=== PATIENT | male | born 1980 | race African-American/Black ===

== ENCOUNTER 2024-11-21 10:13 | Emergency (ER) | payer SELFPAY ==
[2024-11-21] MEDS ORDERED: Lidocaine 1% (PF) 30 ML VIAL ONE (12:39)
[2024-11-21] MEDS ORDERED: HYDROcodone/Acetaminophen 5/325 mg Tablet ONE (12:39)
[2024-11-21] MEDS ORDERED: Ketorolac Tromethamine 30 MG (1 mL) VIAL ONE (12:44)
== END 2024-11-21 13:34 | disposition home or self-care (01) ==
LOC: ERS 10:13
DX: L03.221 Cellulitis of neck (principal); F17.210 Nicotine dependence, cigarettes, uncomplicated
CPT/HCPCS: 10060; 96372; J1885

== ENCOUNTER 2024-11-25 10:49 | Inpatient (IN) | payer SELFPAY ==
[2024-11-25 11:54] LABS: ALT (SGPT) 36 U/L (8-55); AST (SGOT) 36 U/L (5-34); Albumin 2.7 g/dL (3.5-5.0); Alkaline Phosphatase 89 U/L (40-110); Anion Gap 17 mmol/L (10-20); BUN (Urea Nitrogen) 33 mg/dL (8.9-20.6); Calc. Creatinine Clearance 0 mL/min (70-130); Calcium 9.3 mg/dL (7.8-10.44); Carbon Dioxide 23 mmol/L (22-29); Chloride 95 mmol/L (98-107); Estimated GFR 78; Globulin 4.9 g/dL (2.4-3.5); Glucose 117 mg/dL (70-105); Potassium 4.3 mmol/L (3.5-5.1); Protein, Total 7.6 g/dL (6.0-8.3); Sodium 131 mmol/L (136-145)
[2024-11-25 12:30] LABS: Hemoglobin 15.1 g/dL (14.0-18.0); Mean Corpuscular HGB CONC 34.3 g/dL (32.0-36.0); Mean Corpuscular Hemoglobin 31.2 pg (27.0-31.0); Mean Corpuscular Volume 90.9 fL (78.0-98.0); Platelet Count 265 10x3/uL (130-400); RBC Distribution Width 12.6 % (11.5-14.5); Red Blood Cell (RBC) Count 4.84 mill/uL (4.70-6.10)
[2024-11-25 13:07] LABS: Band 15 % (5-11); Burr Cells SLIGHT = 2-5 cells HPF (0-1); Lymphocytes 2 % (21-51); Monocytes 7 % (0-10); Neutrophil 77 % (42-75); Platelet Adequacy Comment Platelets Normal
[2024-11-25] MEDS ORDERED: Iopamidol-370 76% 500 ML MDV (1 ML CHARGE) ONE ×2 (13:13→13:43)
[2024-11-25] MEDS ORDERED: Vancomycin 1 GM/200 ML (FROZEN) BAG ONE (13:22)
[2024-11-25] MEDS ORDERED: Sodium Chloride 0.9% 100 ML ONE (13:22)
[2024-11-25] MEDS ORDERED: Cefepime 2 GM VIAL ONE (13:22)
[2024-11-25] MEDS ORDERED: GASTROGRAFIN 30 ML BOT ONE (13:43)
[2024-11-25] MEDS ORDERED: Morphine 2 MG/ML VIAL ONE (21:30)
[2024-11-25] MEDS ORDERED: Ondansetron ODT 4 MG TAB PO PRN (21:34)
[2024-11-25] MEDS ORDERED: Ondansetron PF 4 MG/2 ML Vial IVP PRN (21:34)
[2024-11-25] MEDS: Morphine 2 MG/ML VIAL SLOW IVP PRN (21:35)
[2024-11-25 22:48] VITALS: BMI 24.7
[2024-11-25] MEDS: Sodium Chloride 0.9% 1,000 ML IV SCH (23:00)
[2024-11-26] MEDS: Vancomycin (BATCH) 1.75 GM in Premix 1 BAG IVPB SCH (00:03)
[2024-11-26] MEDS: Cefepime 1 GM in Sodium Chloride 0.9% 100 ML IVPB SCH (02:08)
[2024-11-26 05:40] LABS: Vancomycin, Random 15.9 ug/mL (See Comment)
[2024-11-26 05:47] LABS: Bacteria/HPF None Seen HPF (None Seen); Bilirubin Negative (Negative); Blood, Urine 1+ (Negative); CAUTI Indications for Culture Acute Hematuria; Clarity Clear (Clear); Glucose, Urine (Dipstick) Normal (Negative); Ketone, Urine Negative (Negative); Leukocyte Negative Leu/uL (Negative); Nitrite Negative (Negative); Protein, Urine (Dipstick) 50 mg/dL (Neg-Trace); Specific Gravity, Urine 1.043 (1.002-1.036); Squamous Epithelial 0-3 HPF (0-3); Urobilinogen Normal mg/dL (Less than 2); WBC/HPF 0-3 HPF (0-3); pH, Urine 5.5 (5.0-9.0)
[2024-11-26 05:48] LABS: Urine Culture Reflex No No
[2024-11-26 05:50] LABS: Anion Gap 16 mmol/L (10-20); BUN (Urea Nitrogen) 28 mg/dL (8.9-20.6); Calc. Creatinine Clearance 96 mL/min (70-130); Calcium 7.8 mg/dL (7.8-10.44); Carbon Dioxide 22 mmol/L (22-29); Chloride 96 mmol/L (98-107); Estimated GFR 93; Glucose 101 mg/dL (70-105); Potassium 4.1 mmol/L (3.5-5.1); Sodium 130 mmol/L (136-145)
[2024-11-26 06:03] LABS: Mean Corpuscular HGB CONC 34.2 g/dL (32.0-36.0); Mean Corpuscular Volume 90.5 fL (78.0-98.0); Mean Platelet Volume 10.1 fL (7.4-10.4); Platelet Count 279 10x3/uL (130-400)
[2024-11-26 06:48] LABS: Band 23 % (5-11); Burr Cells MODERATE= 6-15 cells HPF (0-1); Monocytes 6 % (0-10); Neutrophil 68 % (42-75); Platelet Adequacy Comment Platelets Normal; Polychromasia SLIGHT = 2-3 cells HPF (0-2); Reactive Lymphocytes 3 % (0-10)
[2024-11-26] MEDS ORDERED: PHENYLEPHRINE-NS 100 MCG/ML 10 ML SYRINGE ONE (07:18)
[2024-11-26] MEDS ORDERED: Ondansetron PF 4 MG/2 ML Vial ONE (07:18)
[2024-11-26] MEDS ORDERED: Dexamethasone 20 MG/5 ML VIAL ONE (07:18)
[2024-11-26] MEDS ORDERED: Rocuronium Bromide 10 MG/ML (10ML VIAL) ONE (07:18)
[2024-11-26] MEDS ORDERED: Glycopyrrolate 0.2 MG/ML 5 ML SYRINGE ONE (07:18)
[2024-11-26] MEDS ORDERED: Lidocaine 1% PF 5 ML VIAL ONE (07:18)
[2024-11-26] MEDS ORDERED: PROPOFOL 20 ML ONE (07:19)
[2024-11-26] MEDS ORDERED: Midazolam HCl 2 mg/2 ml Vial ONE (07:19)
[2024-11-26] MEDS ORDERED: fentaNYL PF 100 MCG/2 ML SYRINGE ONE (07:19)
[2024-11-26] MEDS ORDERED: Lidocaine 2% 6 ML (Jelly) SYR ONE (07:28)
[2024-11-26] MEDS ORDERED: ePHEDrine Sulfate 50 MG/10 ML VIAL ONE (08:14)
[2024-11-26 08:15] LABS: Poikilocytosis SLIGHT = 6-15 cells HPF (0-5)
[2024-11-26] MEDS ORDERED: SUGAMMADEX SODIUM 200 MG/2 ML VIAL ONE (08:26)
[2024-11-26] MEDS: Vancomycin 1 GM in Premix 1 BAG IVPB SCH ×2 (10:57→16:15)
[2024-11-26] MEDS: Sodium Chloride 0.9% 1,000 ML IV SCH (11:14)
[2024-11-26 12:53] VITALS: BMI 24.7
[2024-11-26 13:19] LABS: Amphetamine Not Detected (NotDetected); Barbiturates Screen Not Detected (NotDetected); Benzodiazepine Screen Not Detected (NotDetected); Cocaine Metabolite Screen Detected (NotDetected); Methadone Not Detected (NotDetected); Methamphetamine Detected (NotDetected); Opiate Screen Detected (NotDetected); Oxycodone Screen Not Detected (NotDetected); Phencyclidine (PCP) Not Detected (NotDetected); THC/Cannabinoid Screen Detected (NotDetected); Tricyclic Screen Not Detected (NotDetected)
[2024-11-26 17:17] LABS: HIV (1/2) Antibody/Antigen NONREACTIVE (NonReactive); HIV 1/2 INDEX 0.05 S/CO (<1.00)
[2024-11-26] MEDS ORDERED: Cefepime 2 GM in Sodium Chloride 0.9% 100 ML IVPB SCH (21:00)
[2024-11-27] MEDS: Acetaminophen 325 MG TAB PO PRN (00:09)
[2024-11-27 09:39] LABS: Hematocrit 36.1 % (42.0-52.0); Hemoglobin 12.2 g/dL (14.0-18.0); Mean Corpuscular HGB CONC 33.8 g/dL (32.0-36.0); Mean Corpuscular Hemoglobin 31.8 pg (27.0-31.0); Mean Platelet Volume 10.3 fL (7.4-10.4); Platelet Count 340 10x3/uL (130-400); RBC Distribution Width 13.1 % (11.5-14.5); Red Blood Cell (RBC) Count 3.84 mill/uL (4.70-6.10)
[2024-11-27 10:04] LABS: Anisocytosis MARKED = >30 cells HPF (0-5); Band 5 % (5-11); Burr Cells MODERATE= 6-15 cells HPF (0-1); Lymphocytes 2 % (21-51); Macrocytosis MODERATE=16-30 cells HPF (0-5); Monocytes 5 % (0-10); Neutrophil 88 % (42-75); Ovalocytes SLIGHT = 2-5 cells HPF (0-1); Platelet Adequacy Comment Platelets Normal; Poikilocytosis MARKED = >30 cells HPF (0-5); Polychromasia SLIGHT = 2-3 cells HPF (0-2)
[2024-11-27 10:13] LABS: Vancomycin, Random 29.8 ug/mL (See Comment)
[2024-11-27 10:14] LABS: Anion Gap 10 mmol/L (10-20); BUN (Urea Nitrogen) 23 mg/dL (8.9-20.6); Calc. Creatinine Clearance 117 mL/min (70-130); Carbon Dioxide 23 mmol/L (22-29); Chloride 103 mmol/L (98-107); Estimated GFR 110; Glucose 114 mg/dL (70-105); Potassium 4.3 mmol/L (3.5-5.1); Sodium 132 mmol/L (136-145)
[2024-11-27] MEDS: Sodium Chloride 0.9% 1,000 ML IV SCH (17:53)
[2024-11-28 08:35] LABS: #Basophils 0.04 10x3/uL (0.0-0.2); %Basophils 0.2 % (0.0-1.0); %Lymphocytes 6.5 % (21.0-51.0); %Monocytes 9.1 % (0.0-10.0); %Neutrophils 80.8 % (42.0-75.0); Hematocrit 36.1 % (42.0-52.0); Hemoglobin 12.2 g/dL (14.0-18.0); Mean Corpuscular HGB CONC 33.8 g/dL (32.0-36.0); Mean Corpuscular Hemoglobin 31.6 pg (27.0-31.0); Mean Corpuscular Volume 93.5 fL (78.0-98.0); Mean Platelet Volume 10.4 fL (7.4-10.4); Platelet Count 435 10x3/uL (130-400); RBC Distribution Width 13.2 % (11.5-14.5); Red Blood Cell (RBC) Count 3.86 mill/uL (4.70-6.10)
[2024-11-28 08:51] LABS: Anion Gap 13 mmol/L (10-20); BUN (Urea Nitrogen) 19 mg/dL (8.9-20.6); Calc. Creatinine Clearance 121 mL/min (70-130); Calcium 7.7 mg/dL (7.8-10.44); Carbon Dioxide 25 mmol/L (22-29); Chloride 99 mmol/L (98-107); Estimated GFR 112; Glucose 87 mg/dL (70-105); Potassium 4.8 mmol/L (3.5-5.1); Sodium 132 mmol/L (136-145); Vancomycin, Random 14.1 ug/mL (See Comment)
[2024-11-28] MEDS: Sodium Chloride 0.9% 1,000 ML IV SCH (16:50)
[2024-11-28] MEDS: Vancomycin 1 GM in Premix 1 BAG IVPB SCH (20:52)
[2024-11-29] MEDS: Amlodipine 10 MG TAB PO SCH (10:29)
[2024-11-29 10:31] LABS: Hematocrit 38.7 % (42.0-52.0); Mean Corpuscular HGB CONC 33.6 g/dL (32.0-36.0); Mean Corpuscular Volume 92.4 fL (78.0-98.0); Mean Platelet Volume 10.4 fL (7.4-10.4); Platelet Count 502 10x3/uL (130-400); RBC Distribution Width 13.5 % (11.5-14.5); Red Blood Cell (RBC) Count 4.19 mill/uL (4.70-6.10)
[2024-11-29] MEDS: HYDROcodone/Acetaminophen 5/325 mg Tablet PO PRN (10:31)
[2024-11-29 10:50] LABS: Anion Gap 13 mmol/L (10-20); BUN (Urea Nitrogen) 13 mg/dL (8.9-20.6); Calc. Creatinine Clearance 126 mL/min (70-130); Carbon Dioxide 21 mmol/L (22-29); Chloride 101 mmol/L (98-107); Potassium 4.2 mmol/L (3.5-5.1); Sodium 131 mmol/L (136-145)
[2024-11-29 10:51] LABS: Calcium 7.9 mg/dL (7.8-10.44); Estimated GFR 113; Glucose 107 mg/dL (70-105)
[2024-11-29 11:40] LABS: Band 7 % (5-11); Burr Cells MODERATE= 6-15 cells HPF (0-1); Eosinophils 1 % (0-10); Large Platelets 3.9 % (0-5); Lymphocytes 6 % (21-51); Metamyelocyte 1 % (0-0); Monocytes 6 % (0-10); Neutrophil 77 % (42-75); Platelet Adequacy Comment Platelets Increased; Polychromasia SLIGHT = 2-3 cells HPF (0-2); Reactive Lymphocytes 2 % (0-10)
[2024-11-30 08:40] LABS: Hematocrit 34.9 % (42.0-52.0); Hemoglobin 11.4 g/dL (14.0-18.0); Mean Corpuscular HGB CONC 32.7 g/dL (32.0-36.0); Mean Corpuscular Volume 94.8 fL (78.0-98.0); Mean Platelet Volume 9.5 fL (7.4-10.4); Platelet Count 581 10x3/uL (130-400); RBC Distribution Width 13.8 % (11.5-14.5); Red Blood Cell (RBC) Count 3.68 mill/uL (4.70-6.10)
[2024-11-30 08:53] LABS: Anion Gap 13 mmol/L (10-20); BUN (Urea Nitrogen) 12 mg/dL (8.9-20.6); Calc. Creatinine Clearance 117 mL/min (70-130); Calcium 7.9 mg/dL (7.8-10.44); Carbon Dioxide 23 mmol/L (22-29); Chloride 100 mmol/L (98-107); Estimated GFR 110; Glucose 109 mg/dL (70-105); Potassium 3.8 mmol/L (3.5-5.1); Sodium 132 mmol/L (136-145)
[2024-11-30 08:54] LABS: CRP,High Sensitivity (Inhouse) 15.64 mg/dL (< or = 0.5)
[2024-11-30 09:17] LABS: Anisocytosis SLIGHT = 6-15 cells HPF (0-5); Band 2 % (5-11); Lymphocytes 3 % (21-51); Monocytes 4 % (0-10); Neutrophil 91 % (42-75); Platelet Adequacy Comment Platelets Increased; Poikilocytosis SLIGHT = 6-15 cells HPF (0-5); Polychromasia SLIGHT = 2-3 cells HPF (0-2)
[2024-11-30] MEDS: Amlodipine 10 MG TAB PO SCH (10:58)
[2024-11-30] MEDS ORDERED: Morphine 4 MG/ML VIAL SLOW IVP PRN (11:32)
[2024-11-30 15:13] LABS: QuantiFERON-TB Gold Plus Indeterminate (Negative)
[2024-12-01 12:34] LABS: Hematocrit 32.7 % (42.0-52.0); Hemoglobin 11.1 g/dL (14.0-18.0); Mean Corpuscular HGB CONC 33.9 g/dL (32.0-36.0); Mean Corpuscular Hemoglobin 31.1 pg (27.0-31.0); Mean Corpuscular Volume 91.6 fL (78.0-98.0); Platelet Count 638 10x3/uL (130-400); RBC Distribution Width 13.8 % (11.5-14.5); Red Blood Cell (RBC) Count 3.57 mill/uL (4.70-6.10)
[2024-12-01 12:57] LABS: Anion Gap 11 mmol/L (10-20); BUN (Urea Nitrogen) 8 mg/dL (8.9-20.6); Calc. Creatinine Clearance 126 mL/min (70-130); Carbon Dioxide 23 mmol/L (22-29); Chloride 101 mmol/L (98-107); Estimated GFR 113; Glucose 93 mg/dL (70-105); Potassium 4.2 mmol/L (3.5-5.1); Sodium 131 mmol/L (136-145)
[2024-12-01 13:07] LABS: Anisocytosis MARKED = >30 cells HPF (0-5); Band 1 % (5-11); Eosinophils 1 % (0-10); Lymphocytes 3 % (21-51); Macrocytosis SLIGHT = 6-15 cells HPF (0-5); Monocytes 2 % (0-10); Neutrophil 91 % (42-75); Plasma Cells 1 % (0-0); Platelet Adequacy Comment Platelets Increased; Polychromasia SLIGHT = 2-3 cells HPF (0-2); Spherocytes SLIGHT = 1-5 cells HPF (None Seen)
[2024-12-02 05:47] LABS: #Basophils 0.05 10x3/uL (0.0-0.2); %Basophils 0.2 % (0.0-1.0); %Eosinophils 0.7 % (0.0-10.0); %Lymphocytes 5.9 % (21.0-51.0); %Monocytes 4.6 % (0.0-10.0); %Neutrophils 85.4 % (42.0-75.0); Hemoglobin 10.6 g/dL (14.0-18.0); Mean Corpuscular HGB CONC 34.2 g/dL (32.0-36.0); Mean Corpuscular Hemoglobin 31.1 pg (27.0-31.0); Mean Corpuscular Volume 90.9 fL (78.0-98.0); Mean Platelet Volume 9.3 fL (7.4-10.4); Platelet Count 606 10x3/uL (130-400); Red Blood Cell (RBC) Count 3.41 mill/uL (4.70-6.10)
[2024-12-02 06:00] LABS: Anion Gap 10 mmol/L (10-20); BUN (Urea Nitrogen) 10 mg/dL (8.9-20.6); Calc. Creatinine Clearance 118 mL/min (70-130); Calcium 7.7 mg/dL (7.8-10.44); Carbon Dioxide 24 mmol/L (22-29); Chloride 101 mmol/L (98-107); Estimated GFR 111; Glucose 96 mg/dL (70-105); Potassium 4.2 mmol/L (3.5-5.1); Sodium 131 mmol/L (136-145)
[2024-12-02 06:02] LABS: Vancomycin, Random 16.7 ug/mL (See Comment)
[2024-12-02] MEDS: SODIUM CHLORIDE IVPB SCH (09:22)
[2024-12-02] MEDS: GENTAMICIN IVPB SCH (09:22)
[2024-12-02] MEDS: ADMIXTURE FEE IVPB SCH (09:22)
[2024-12-03 04:56] LABS: #Basophils 0.07 10x3/uL (0.0-0.2); %Basophils 0.3 % (0.0-1.0); %Eosinophils 0.9 % (0.0-10.0); %Lymphocytes 7.8 % (21.0-51.0); %Monocytes 4.9 % (0.0-10.0); %Neutrophils 83.5 % (42.0-75.0); Hemoglobin 10.1 g/dL (14.0-18.0); Mean Corpuscular HGB CONC 33.7 g/dL (32.0-36.0); Mean Corpuscular Hemoglobin 31.1 pg (27.0-31.0); Mean Corpuscular Volume 92.3 fL (78.0-98.0); Mean Platelet Volume 9.2 fL (7.4-10.4); Platelet Count 601 10x3/uL (130-400); Red Blood Cell (RBC) Count 3.25 mill/uL (4.70-6.10)
[2024-12-03 05:16] LABS: Anion Gap 13 mmol/L (10-20); BUN (Urea Nitrogen) 9 mg/dL (8.9-20.6); Calc. Creatinine Clearance 128 mL/min (70-130); Calcium 7.6 mg/dL (7.8-10.44); Carbon Dioxide 22 mmol/L (22-29); Chloride 104 mmol/L (98-107); Estimated GFR 113; Glucose 95 mg/dL (70-105); Potassium 4.3 mmol/L (3.5-5.1); Sodium 135 mmol/L (136-145)
[2024-12-03] MEDS ORDERED: PHENYLEPHRINE-NS 100 MCG/ML 10 ML SYRINGE ONE (08:39)
[2024-12-03] MEDS ORDERED: PROPOFOL 40 ML ONE (08:40)
[2024-12-03] MEDS ORDERED: PROPOFOL 20 ML ONE ×2 (09:19→09:32)
[2024-12-03] MEDS ORDERED: ePHEDrine Sulfate 50 MG/10 ML VIAL ONE (09:47)
[2024-12-04 04:30] LABS: #Basophils 0.05 10x3/uL (0.0-0.2); %Basophils 0.3 % (0.0-1.0); %Eosinophils 0.9 % (0.0-10.0); %Lymphocytes 7.1 % (21.0-51.0); %Monocytes 4.3 % (0.0-10.0); %Neutrophils 85.1 % (42.0-75.0); Hematocrit 28.2 % (42.0-52.0); Hemoglobin 9.3 g/dL (14.0-18.0); Mean Corpuscular Hemoglobin 31.3 pg (27.0-31.0); Mean Corpuscular Volume 94.9 fL (78.0-98.0); Mean Platelet Volume 9.1 fL (7.4-10.4); Platelet Count 544 10x3/uL (130-400); RBC Distribution Width 14.2 % (11.5-14.5); Red Blood Cell (RBC) Count 2.97 mill/uL (4.70-6.10)
[2024-12-04 04:51] LABS: Anion Gap 11 mmol/L (10-20); BUN (Urea Nitrogen) 8 mg/dL (8.9-20.6); Calc. Creatinine Clearance 120 mL/min (70-130); Calcium 7.8 mg/dL (7.8-10.44); Carbon Dioxide 25 mmol/L (22-29); Chloride 101 mmol/L (98-107); Estimated GFR 111; Glucose 131 mg/dL (70-105); Sodium 133 mmol/L (136-145)
[2024-12-04] MEDS: Methocarbamol 500 MG TAB PO SCH ×2 (16:12→20:31)
[2024-12-05 05:18] LABS: #Basophils 0.04 10x3/uL (0.0-0.2); %Basophils 0.3 % (0.0-1.0); %Eosinophils 1.3 % (0.0-10.0); %Lymphocytes 9.9 % (21.0-51.0); %Monocytes 6.7 % (0.0-10.0); %Neutrophils 79.6 % (42.0-75.0); Hematocrit 27.2 % (42.0-52.0); Hemoglobin 8.9 g/dL (14.0-18.0); Mean Corpuscular HGB CONC 32.7 g/dL (32.0-36.0); Mean Corpuscular Hemoglobin 31.1 pg (27.0-31.0); Mean Corpuscular Volume 95.1 fL (78.0-98.0); Platelet Count 545 10x3/uL (130-400); RBC Distribution Width 14.2 % (11.5-14.5); Red Blood Cell (RBC) Count 2.86 mill/uL (4.70-6.10)
[2024-12-05 05:32] LABS: Anion Gap 11 mmol/L (10-20); BUN (Urea Nitrogen) 7 mg/dL (8.9-20.6); Calc. Creatinine Clearance 105 mL/min (70-130); Calcium 7.8 mg/dL (7.8-10.44); Carbon Dioxide 23 mmol/L (22-29); Chloride 101 mmol/L (98-107); Estimated GFR 103; Glucose 120 mg/dL (70-105); Potassium 4.1 mmol/L (3.5-5.1); Sodium 131 mmol/L (136-145)
[2024-12-05] MEDS ORDERED: Iopamidol 370 76% 100 ML VIAL ONE (14:09)
[2024-12-05] MEDS: VANCOMYCIN 1.25 GM/250 ML BAG 1.25 GM in Premix 1 BAG IVPB SCH (17:23)
[2024-12-06 05:22] LABS: #Basophils 0.05 10x3/uL (0.0-0.2); %Basophils 0.3 % (0.0-1.0); %Eosinophils 1.6 % (0.0-10.0); %Lymphocytes 6.7 % (21.0-51.0); %Monocytes 5.5 % (0.0-10.0); %Neutrophils 83.9 % (42.0-75.0); Hematocrit 26.7 % (42.0-52.0); Hemoglobin 8.6 g/dL (14.0-18.0); Mean Corpuscular HGB CONC 32.2 g/dL (32.0-36.0); Mean Corpuscular Hemoglobin 30.8 pg (27.0-31.0); Mean Corpuscular Volume 95.7 fL (78.0-98.0); Mean Platelet Volume 8.8 fL (7.4-10.4); Platelet Count 630 10x3/uL (130-400); RBC Distribution Width 14.3 % (11.5-14.5); Red Blood Cell (RBC) Count 2.79 mill/uL (4.70-6.10)
[2024-12-06 05:42] LABS: Anion Gap 13 mmol/L (10-20); BUN (Urea Nitrogen) 9 mg/dL (8.9-20.6); Calc. Creatinine Clearance 95 mL/min (70-130); Carbon Dioxide 21 mmol/L (22-29); Chloride 99 mmol/L (98-107); Estimated GFR 91; Glucose 133 mg/dL (70-105); Sodium 129 mmol/L (136-145)
[2024-12-07] MEDS ORDERED: Fentanyl 250 MCG/5 ML VIAL ONE (07:08)
[2024-12-07] MEDS ORDERED: Dexamethasone 4 mg/ml Vial ONE ×2 (07:08→07:19)
[2024-12-07] MEDS ORDERED: PROPOFOL 20 ML ONE (07:08)
[2024-12-07] MEDS ORDERED: SUGAMMADEX SODIUM 200 MG/2 ML VIAL ONE (07:08)
[2024-12-07] MEDS ORDERED: Ondansetron PF 4 MG/2 ML Vial ONE (07:08)
[2024-12-07] MEDS ORDERED: Midazolam HCl 2 mg/2 ml Vial ONE (07:08)
[2024-12-07] MEDS ORDERED: Lidocaine 1% PF 5 ML VIAL ONE (07:08)
[2024-12-07] MEDS ORDERED: Rocuronium Bromide 10 MG/ML (10ML VIAL) ONE (07:08)
[2024-12-07] MEDS ORDERED: EPINEPHrine 1 MG/ML VIAL ONE (07:20)
[2024-12-07] MEDS ORDERED: Bupivacaine PF 0.5% 30 ML VIAL ONE (07:20)
[2024-12-07] MEDS ORDERED: PHENYLEPHRINE-NS 100 MCG/ML 10 ML SYRINGE ONE (08:32)
[2024-12-07] MEDS ORDERED: HYDROmorphone 2 MG/ML VIAL SLOW IVP PRN (08:58)
[2024-12-07] MEDS ORDERED: Promethazine HCl 25 MG/ML VIAL IM PRN ×2 (08:58→09:47)
[2024-12-07] MEDS ORDERED: Ondansetron HCl/PF 4 MG/2 ML Vial IVP PRN (08:58)
[2024-12-07] MEDS ORDERED: fentaNYL 50 mcg/mL 1 mL Vial ONE ×2 (09:36→09:41)
[2024-12-07] MEDS ORDERED: HYDROmorphone 0.5 MG/0.5 ML SYRINGE ONE ×3 (09:44→10:58)
[2024-12-07] MEDS ORDERED: Ondansetron PF 4 MG/2 ML Vial IVP PRN (09:47)
[2024-12-07] MEDS ORDERED: diphenhydrAMINE 25 MG CAP PO PRN (09:47)
[2024-12-07] MEDS ORDERED: FENTANYL 500 MCG/10 ML VIAL 2,000 MCG in Sodium Chloride 0.9% 60 ML IV PRN (09:47)
[2024-12-07] MEDS ORDERED: diphenhydrAMINE 50 MG/ML VIAL IM PRN (09:47)
[2024-12-07] MEDS ORDERED: diphenhydrAMINE 50 MG/ML VIAL IVP PRN (09:47)
[2024-12-07] MEDS ORDERED: Naloxone HCl 0.4 mg/ml Vial IV PRN (09:47)
[2024-12-07] MEDS ORDERED: ACTIVE PCA FS PRN (10:00)
[2024-12-07] MEDS: Piperacillin/Tazobactam 3.375 GM in Sodium Chloride 0.9% 100 ML IVPB SCH ×2 (13:40→17:50)
[2024-12-07] MEDS: Fentanyl CADD 100 ML IVPB SCH (14:42)
[2024-12-07 16:50] LABS: #Basophils 0.03 10x3/uL (0.0-0.2); #Eosinophils Less than 0.03 10x3/uL (0.0-0.7); %Basophils 0.2 % (0.0-1.0); %Lymphocytes 3.7 % (21.0-51.0); %Monocytes 2.1 % (0.0-10.0); %Neutrophils 92.8 % (42.0-75.0); Hematocrit 24.8 % (42.0-52.0); Hemoglobin 7.8 g/dL (14.0-18.0); Mean Corpuscular HGB CONC 31.5 g/dL (32.0-36.0); Mean Corpuscular Hemoglobin 30.7 pg (27.0-31.0); Mean Corpuscular Volume 97.6 fL (78.0-98.0); Mean Platelet Volume 9.1 fL (7.4-10.4); Platelet Count 664 10x3/uL (130-400); RBC Distribution Width 14.1 % (11.5-14.5); Red Blood Cell (RBC) Count 2.54 mill/uL (4.70-6.10)
[2024-12-07 17:02] LABS: Anion Gap 16 mmol/L (10-20); BUN (Urea Nitrogen) 15 mg/dL (8.9-20.6); Calc. Creatinine Clearance 102 mL/min (70-130); Calcium 7.9 mg/dL (7.8-10.44); Carbon Dioxide 19 mmol/L (22-29); Chloride 100 mmol/L (98-107); Estimated GFR 100; Glucose 136 mg/dL (70-105); Potassium 5.2 mmol/L (3.5-5.1); Sodium 130 mmol/L (136-145); Vancomycin, Random 13.4 ug/mL (See Comment)
[2024-12-07 17:03] LABS: INR-International Normal Ratio 1.4; Prothrombin Time 16.7 sec (12.0-14.7)
[2024-12-07] MEDS: Perflutren Lipid Microspheres 1.1 MG/ML VIAL ONE (17:26)
[2024-12-07 23:02] LABS: #Basophils 0.04 10x3/uL (0.0-0.2); %Basophils 0.3 % (0.0-1.0); %Eosinophils 0.2 % (0.0-10.0); %Lymphocytes 8.8 % (21.0-51.0); %Neutrophils 83.9 % (42.0-75.0); Hematocrit 23.8 % (42.0-52.0); Hemoglobin 7.5 g/dL (14.0-18.0); Mean Corpuscular HGB CONC 31.5 g/dL (32.0-36.0); Mean Corpuscular Hemoglobin 30.9 pg (27.0-31.0); Mean Corpuscular Volume 97.9 fL (78.0-98.0); Mean Platelet Volume 8.9 fL (7.4-10.4); Platelet Count 554 10x3/uL (130-400); RBC Distribution Width 13.9 % (11.5-14.5); Red Blood Cell (RBC) Count 2.43 mill/uL (4.70-6.10)
[2024-12-08 04:56] LABS: #Basophils 0.03 10x3/uL (0.0-0.2); %Basophils 0.2 % (0.0-1.0); %Lymphocytes 11.7 % (21.0-51.0); %Monocytes 8.9 % (0.0-10.0); %Neutrophils 76.9 % (42.0-75.0); Hematocrit 18.9 % (42.0-52.0); Hemoglobin 6.2 g/dL (14.0-18.0); Mean Corpuscular HGB CONC 32.8 g/dL (32.0-36.0); Mean Corpuscular Hemoglobin 31.5 pg (27.0-31.0); Mean Corpuscular Volume 95.9 fL (78.0-98.0); Mean Platelet Volume 9.2 fL (7.4-10.4); Platelet Count 546 10x3/uL (130-400); RBC Distribution Width 14.1 % (11.5-14.5); Red Blood Cell (RBC) Count 1.97 mill/uL (4.70-6.10)
[2024-12-08 05:09] LABS: Anion Gap 13 mmol/L (10-20); BUN (Urea Nitrogen) 17 mg/dL (8.9-20.6); Calc. Creatinine Clearance 88 mL/min (70-130); Calcium 7.6 mg/dL (7.8-10.44); Carbon Dioxide 20 mmol/L (22-29); Chloride 99 mmol/L (98-107); Estimated GFR 83; Glucose 112 mg/dL (70-105); Potassium 4.4 mmol/L (3.5-5.1); Sodium 128 mmol/L (136-145)
[2024-12-08] MEDS: Lidocaine 1% w/Epinephrine 1:100K 20 ML VIAL ONE (09:09)
[2024-12-09 03:47] LABS: #Basophils 0.03 10x3/uL (0.0-0.2); %Basophils 0.3 % (0.0-1.0); %Eosinophils 2.6 % (0.0-10.0); %Monocytes 6.9 % (0.0-10.0); %Neutrophils 76.2 % (42.0-75.0); Hematocrit 20.2 % (42.0-52.0); Hemoglobin 6.7 g/dL (14.0-18.0); Mean Corpuscular HGB CONC 33.2 g/dL (32.0-36.0); Mean Corpuscular Hemoglobin 31.3 pg (27.0-31.0); Mean Corpuscular Volume 94.4 fL (78.0-98.0); Mean Platelet Volume 8.7 fL (7.4-10.4); Platelet Count 451 10x3/uL (130-400); RBC Distribution Width 14.6 % (11.5-14.5); Red Blood Cell (RBC) Count 2.14 mill/uL (4.70-6.10)
[2024-12-09 04:01] LABS: Vancomycin, Random 16.5 ug/mL (See Comment)
[2024-12-09 04:02] LABS: Anion Gap 13 mmol/L (10-20); BUN (Urea Nitrogen) 11 mg/dL (8.9-20.6); Calc. Creatinine Clearance 100 mL/min (70-130); Calcium 7.6 mg/dL (7.8-10.44); Carbon Dioxide 21 mmol/L (22-29); Chloride 102 mmol/L (98-107); Estimated GFR 98; Glucose 142 mg/dL (70-105); Potassium 4.2 mmol/L (3.5-5.1); Sodium 132 mmol/L (136-145)
[2024-12-09] MEDS ORDERED: Rocuronium Bromide 10 MG/ML (10ML VIAL) ONE (08:48)
[2024-12-09] MEDS ORDERED: PROPOFOL 20 ML ONE (08:48)
[2024-12-09] MEDS ORDERED: Midazolam HCl 2 mg/2 ml Vial ONE (08:50)
[2024-12-09] MEDS ORDERED: Fentanyl 250 MCG/5 ML VIAL ONE (08:50)
[2024-12-09] MEDS ORDERED: EPINEPHrine 1 MG/ML VIAL ONE (09:12)
[2024-12-09] MEDS ORDERED: Dexamethasone 4 mg/ml Vial ONE (09:12)
[2024-12-09] MEDS ORDERED: Bupivacaine PF 0.5% 30 ML VIAL ONE (09:12)
[2024-12-09] MEDS ORDERED: Sodium Chloride 0.9% 100 ML ONE (09:46)
[2024-12-09] MEDS ORDERED: Piperacillin/Tazobactam 3.375 GM VIAL ONE (09:46)
[2024-12-09] MEDS ORDERED: Dexamethasone 20 MG/5 ML VIAL ONE (11:07)
[2024-12-09] MEDS ORDERED: Ondansetron PF 4 MG/2 ML Vial ONE (11:07)
[2024-12-09] MEDS ORDERED: Thrombin 5000 UNITS/5 ML VIAL ONE (11:40)
[2024-12-09] MEDS ORDERED: SUGAMMADEX SODIUM 200 MG/2 ML VIAL ONE (12:11)
[2024-12-09] MEDS ORDERED: Meperidine HCl/PF 25 MG (1 mL) VIAL ONE (12:46)
[2024-12-09] MEDS ORDERED: Ondansetron HCl/PF 4 MG/2 ML Vial IVP PRN (12:48)
[2024-12-09] MEDS ORDERED: HYDROmorphone 2 MG/ML VIAL SLOW IVP PRN (12:48)
[2024-12-09] MEDS ORDERED: Promethazine HCl 25 MG/ML VIAL IM PRN (12:48)
[2024-12-10 06:07] LABS: #Basophils 0.05 10x3/uL (0.0-0.2); %Basophils 0.3 % (0.0-1.0); %Eosinophils 0.6 % (0.0-10.0); %Lymphocytes 13.4 % (21.0-51.0); %Monocytes 8.8 % (0.0-10.0); %Neutrophils 76.1 % (42.0-75.0); Hematocrit 24.9 % (42.0-52.0); Hemoglobin 8.4 g/dL (14.0-18.0); Mean Corpuscular HGB CONC 33.7 g/dL (32.0-36.0); Mean Corpuscular Volume 88.9 fL (78.0-98.0); Platelet Count 449 10x3/uL (130-400); RBC Distribution Width 16.3 % (11.5-14.5)
[2024-12-10 06:21] LABS: Anion Gap 11 mmol/L (10-20); BUN (Urea Nitrogen) 11 mg/dL (8.9-20.6); Calc. Creatinine Clearance 112 mL/min (70-130); Carbon Dioxide 24 mmol/L (22-29); Chloride 101 mmol/L (98-107); Estimated GFR 109; Glucose 108 mg/dL (70-105); Potassium 4.5 mmol/L (3.5-5.1); Sodium 131 mmol/L (136-145)
[2024-12-11 04:40] LABS: #Basophils 0.05 10x3/uL (0.0-0.2); %Basophils 0.5 % (0.0-1.0); %Eosinophils 2.4 % (0.0-10.0); %Lymphocytes 18.8 % (21.0-51.0); %Monocytes 7.9 % (0.0-10.0); %Neutrophils 69.4 % (42.0-75.0); Hematocrit 23.2 % (42.0-52.0); Hemoglobin 7.7 g/dL (14.0-18.0); Mean Corpuscular HGB CONC 33.2 g/dL (32.0-36.0); Mean Corpuscular Hemoglobin 30.3 pg (27.0-31.0); Mean Corpuscular Volume 91.3 fL (78.0-98.0); Mean Platelet Volume 8.8 fL (7.4-10.4); Platelet Count 403 10x3/uL (130-400); RBC Distribution Width 16.1 % (11.5-14.5); Red Blood Cell (RBC) Count 2.54 mill/uL (4.70-6.10)
[2024-12-11 05:14] LABS: Anion Gap 9 mmol/L (10-20); BUN (Urea Nitrogen) 11 mg/dL (8.9-20.6); Calc. Creatinine Clearance 112 mL/min (70-130); Calcium 7.9 mg/dL (7.8-10.44); Carbon Dioxide 25 mmol/L (22-29); Chloride 103 mmol/L (98-107); Estimated GFR 109; Glucose 133 mg/dL (70-105); Sodium 133 mmol/L (136-145)
[2024-12-11] MEDS: Ipratropium/Albuterol 3 ML NEB EZPAP SCH (07:04)
[2024-12-12 04:43] LABS: #Basophils 0.05 10x3/uL (0.0-0.2); %Basophils 0.6 % (0.0-1.0); %Eosinophils 3.9 % (0.0-10.0); %Lymphocytes 19.5 % (21.0-51.0); %Neutrophils 64.4 % (42.0-75.0); Hematocrit 22.8 % (42.0-52.0); Hemoglobin 7.3 g/dL (14.0-18.0); Mean Corpuscular Hemoglobin 29.9 pg (27.0-31.0); Mean Corpuscular Volume 93.4 fL (78.0-98.0); Mean Platelet Volume 8.7 fL (7.4-10.4); Platelet Count 412 10x3/uL (130-400); Red Blood Cell (RBC) Count 2.44 mill/uL (4.70-6.10)
[2024-12-12 05:26] LABS: Anion Gap 10 mmol/L (10-20); BUN (Urea Nitrogen) 10 mg/dL (8.9-20.6); Calc. Creatinine Clearance 120 mL/min (70-130); Calcium 7.9 mg/dL (7.8-10.44); Carbon Dioxide 25 mmol/L (22-29); Chloride 103 mmol/L (98-107); Estimated GFR 111; Glucose 100 mg/dL (70-105); Potassium 4.2 mmol/L (3.5-5.1); Sodium 134 mmol/L (136-145)
[2024-12-12] MEDS ORDERED: fentaNYL 50 mcg/mL 1 mL Vial SLOW IVP PRN (12:04)
[2024-12-12] MEDS: HYDROcodone/Acetaminophen 10/325 mg Tablet PO PRN (13:39)
[2024-12-12 14:11] LABS: QuantiFERON-TB Gold Plus Negative (Negative)
[2024-12-12] MEDS ORDERED: Bisacodyl 5 MG TAB PO PRN (20:48)
[2024-12-12] MEDS: Senokot S 8.6-50 MG TAB PO PRN (21:46)
[2024-12-13] MEDS: HYDROcodone/Acetaminophen 10/325 mg Tablet PO PRN (04:29)
[2024-12-13 06:32] LABS: Vancomycin, Random 43.4 ug/mL (See Comment)
[2024-12-13] MEDS ORDERED: Lidocaine 1% PF 5 ML VIAL ONE (12:02)
[2024-12-13] MEDS ORDERED: Sodium Bicarbonate 2.5 MEQ/5 ML SDV ONE (12:02)
[2024-12-13 15:06] LABS: Amphetamine Not Detected (NotDetected); Barbiturates Screen Not Detected (NotDetected); Benzodiazepine Screen Not Detected (NotDetected); Cocaine Metabolite Screen Detected (NotDetected); Methadone Not Detected (NotDetected); Methamphetamine Not Detected (NotDetected); Opiate Screen Detected (NotDetected); Oxycodone Screen Not Detected (NotDetected); Phencyclidine (PCP) Not Detected (NotDetected); THC/Cannabinoid Screen Not Detected (NotDetected); Tricyclic Screen Not Detected (NotDetected)
[2024-12-13 15:37] LABS: Fungus Stain Final report (.)
[2024-12-13 15:37] LABS: Fungus Stain Final report (.)
[2024-12-14 07:30] LABS: Vancomycin, Random 10.7 ug/mL (See Comment)
[2024-12-14] MEDS: Polyethylene Glycol 3350 17 GM Packet PO SCH (09:12)
[2024-12-14] MEDS: Vancomycin 1 GM in Premix 1 BAG IVPB SCH (14:45)
[2024-12-15] MEDS ORDERED: Ipratropium/Albuterol 3 ML NEB EZPAP PRN (14:15)
[2024-12-17 17:01] VITALS: BP 127/68; TEMP 97.9
== END 2024-12-17 17:00 | disposition home or self-care (01) | DRG 853 ==
LOC: ERS 10:49 → EEVIPCON 16:29 → ERHOLD 16:29 → MSONC 22:30 → IMCU/EMU 12-07 12:17 → CCU 12-09 11:39 → IMCU/EMU 12-10 09:00 → SURG B 12-12 09:59
PROVIDERS: ADMIT Internal Medicine; ATTEND Internal Medicine
PROC: 3E03329 Introduction of Other Anti-infective into Peripheral Vein, Percutaneous Approach (ICD-10-PCS; 2024-11-25)
PROC: 0J940ZZ Drainage of Right Neck Subcutaneous Tissue and Fascia, Open Approach (ICD-10-PCS; 2024-11-26)
PROC: 0JB40ZX Excision of Right Neck Subcutaneous Tissue and Fascia, Open Approach, Diagnostic (ICD-10-PCS; 2024-11-26)
PROC: B24BZZ4 Ultrasonography of Heart with Aorta, Transesophageal (ICD-10-PCS; 2024-12-03)
PROC: 0BNM0ZZ Release Bilateral Lungs, Open Approach (ICD-10-PCS; principal; 2024-12-07)
PROC: 0BJQ4ZZ Inspection of Pleura, Percutaneous Endoscopic Approach (ICD-10-PCS; 2024-12-07)
PROC: 0B9P00Z Drainage of Left Pleura with Drainage Device, Open Approach (ICD-10-PCS; 2024-12-07)
PROC: 0B9N00Z Drainage of Right Pleura with Drainage Device, Open Approach (ICD-10-PCS; 2024-12-07)
PROC: 30233N1 Transfusion of Nonautologous Red Blood Cells into Peripheral Vein, Percutaneous Approach (ICD-10-PCS; 2024-12-08)
PROC: 0W380ZZ Control Bleeding in Chest Wall, Open Approach (ICD-10-PCS; 2024-12-09)
PROC: 0BJ08ZZ Inspection of Tracheobronchial Tree, Via Natural or Artificial Opening Endoscopic (ICD-10-PCS; 2024-12-09)
PROC: 02HV33Z Insertion of Infusion Device into Superior Vena Cava, Percutaneous Approach (ICD-10-PCS; 2024-12-13)
PROC: B518ZZA Fluoroscopy of Superior Vena Cava, Guidance (ICD-10-PCS; 2024-12-13)
PROC: B548ZZA Ultrasonography of Superior Vena Cava, Guidance (ICD-10-PCS; 2024-12-13)
DX: A41.02 Sepsis due to Methicillin resistant Staphylococcus aureus (principal); J85.2 Abscess of lung without pneumonia; J86.9 Pyothorax without fistula; L02.11 Cutaneous abscess of neck; Z59.00 Homelessness unspecified; E87.1 Hypo-osmolality and hyponatremia; J98.11 Atelectasis; D62 Acute posthemorrhagic anemia; J95.830 Postprocedural hemorrhage of a respiratory system organ or structure following a respiratory system procedure; J93.9 Pneumothorax, unspecified; F14.10 Cocaine abuse, uncomplicated; F12.10 Cannabis abuse, uncomplicated; F15.10 Other stimulant abuse, uncomplicated; F17.210 Nicotine dependence, cigarettes, uncomplicated; I34.0 Nonrheumatic mitral (valve) insufficiency; I70.0 Atherosclerosis of aorta; Y83.8 Other surgical procedures as the cause of abnormal reaction of the patient, or of later complication, without mention of misadventure at the time of the procedure; I07.1 Rheumatic tricuspid insufficiency; Z71.51 Drug abuse counseling and surveillance of drug abuser; Z71.6 Tobacco abuse counseling; Z79.2 Long term (current) use of antibiotics; Z79.1 Long term (current) use of non-steroidal anti-inflammatories (NSAID)
CPT/HCPCS: 36415; 36416; 36430; 36572; 70491; 71045; 71046; 71260; 74177; 80048; 80053; 80202; 80306; 81001; 82565; 83605; 84145; 85025; 85610; 86141; 86480; 86850; 86900; 86901; 87040; 87070; 87077; 87102; 87149; 87186; 87205; 87206; 87389; 88304; 93306; 93312; 94640; 96365; 96366; 96368; 97139; C1729; C1751; J0171; J0665; J0692; J1100; J1171; J1580; J2175; J2250; J2272; J2405; J2543; J2704; J3010; J3370; J7030; J7620; P9016; Q9957; Q9963; Q9967